=== PATIENT | male | born 2005 | race Caucasian/White ===

== ENCOUNTER 2025-09-24 14:36 | Emergency (ER) | payer BC, SELFPAY ==
[2025-09-24 14:55] VITALS: BP 128/83; PULSE 111; RESP 16; TEMP 37.6; O2SAT 99
--- NOTE | 2025-09-24 15:10 | ED_ITS ---
HPI - URI/Sore Throat General Chief Complaint: Upper Respiratory Infection Stated Complaint: SINUS CONGESTION Time Seen by Provider: 09/24/25 15:03 Source: patient and RN notes reviewed Mode of arrival: ambulatory Limitations: no limitations History of Present Illness HPI Narrative: 20-year-old male patient presents today with a 5 day history of nasal congestion, rhinorrhea cough postnasal drip, sore throat sinus pressure. Denies fever, cough, shortness of breath. He has tried Mucinex and Xyzal with minimal relief. Related Data Home Medications ?Medication ?Instructions ?Recorded ?Confirmed ?Last Taken ?Type No Home Medications 09/24/25 09/24/25 U nknown History Allergies Allergy/AdvReac Type Severity Reaction Status Date / Time antibiotic Allergy Unknown unknown Uncoded 09/24/25 14:59 PMFSH Comments At time of signature, I have reviewed and agree with nursing past medical, surgical, social and family history unless otherwise noted. Please see nursing chart for further information. There is no relevant family history pertinent to the presenting complaint Exam Narrative: GENERAL: Ill-appearing, well-nourished, and in no acute distress. HEAD: Normocephalic, atraumatic. EYES: EOMI. No redness or drainage. Conjunctivae normal. ENT: Mucous membranes pink and moist. Nares congested with rhinorrhea. TMs normal bilaterally. Throat. Thymus with moderate clear postnasal drainage. Uvula midline. NECK: Normal AROM. Supple. No lymphadenopathy. CHEST: No respiratory distress. Clear to auscultation. HEART: Regular rate and rhythm. No murmur appreciated. EXTREMITIES: Normal range of motion. No edema. SKIN: Warm, dry, no rash. Capillary refill normal. Normal skin turgor. NEURO: No focal deficits. Alert and oriented x3. Gait steady. PSYCH: Normal affect. No signs of depression or anxiety. Course Course Level of Care: Express Care Visit Vital Signs Vital signs: Vital Signs Temperature 99.7 F H 09/24/25 14:55 Pulse Rate 111 H 09/24/25 14:55 Respiratory Rate 16 09/24/25 14:55 Blood Pressure 128/83 09/24/25 14:55 Pulse Oximetry 99 09/24/25 14:55 Temperature 99.7 F H 09/24/25 14:55 Pulse Rate 111 H 09/24/25 14:55 Respiratory Rate 16 09/24/25 14:55 Blood Pressure 128/83 09/24/25 14:55 Pulse Oximetry 99 09/24/25 14:55 Reviewed [facility] Narrative Medical decision making narrative: 20-year-old male patient presents today with a 5 day history of nasal congestion , rhinorrhea cough postnasal drip, sore throat sinus pressure. Denies fever, cough, shortness of breath. He has tried Mucinex and Xyzal with minimal relief. Upon exam, patient is ill-appearing with congestion, rhinorrhea, erythematous throat with postnasal drainage. Influenza and COVID negative. Symptoms likely viral in etiology. Discussed [id number] medication use and duration of illness. No prescription medications indicated at this time. Anticipatory guidance given. Patient agrees with plan. Vital signs stable with slight tachycardia. Differential Diagnosis Differential Diagnosis: URI, influenza, COVID, pharyngitis Lab Data [facility] Lab Attestation statement: I personally reviewed the patient's lab results. Lab results narrative: Influenza negative, COVID negative Critical Care Time Critical Care Time Critical Care Time: No Discharge Plan Discharge Clinical Impression: Upper respiratory infection Qualifiers: URI type: unspecified URI Qualified Code(s): J06.9 - Acute upper respiratory infection, unspecified Patient Disposition: Home Condition: Stable Instructions: Upper Respiratory Infection (DC) Additional Instructions: Your COVID-19 and influenza swabs were negative today. Your Symptoms are likely due to a viral illness, which is not treated with antibiotics. Virus symptoms can last for up to 7-10days. Take Tylenol or ibuprofen for pain or fever. Consider Sudafed or Flonase for your sinus pressure and congestion. Rest and stay hydrated. Follow up with your PCP in 5-7 days if symptoms are not improving. Go to the ER immediately if you develop shortness of breath, difficulty swallowing, or any other concerning symptoms. Patient Language: Pashto Prescriptions: No Action No Home Medications Follow-up/Referrals: PHYSICIAN,NECK CUTTER [Primary Care Provider, Internal Medicine] Time of Disposition: 15:14
[2025-09-24 15:20] LABS: EDCOVIDSCREEN Negative (Negative); EDINFLUASCREEN Negative (Negative); EDINFLUBSCREEN Negative (Negative)
== END 2025-09-24 15:17 | disposition home or self-care (01) ==
PROVIDERS: Emergency Provider Nurse Practitioner
DX: J06.9 Acute upper respiratory infection, unspecified (principal); Z20.822 Contact with and (suspected) exposure to COVID-19
CPT/HCPCS: 87426; 87804; 99202; G0463